=== PATIENT | female | born 1980 | race Caucasian/White ===

== ENCOUNTER 2017-03-02 20:14 | Emergency (ER) | payer OTHER ==
[~2017-03-02] VITALS: Ht 165.1 cm; Wt 95.0 kg
[2017-03-02 20:18] VITALS: BP 135/65; PULSE 80; RESP 16; TEMP 98.2; O2SAT 98
--- NOTE | 2017-03-02 21:27 | PD ---
HPI . migraine x 1 day Chief Complaint: Headache Time Seen by Provider: 21:26 Travel History International Travel<30 days: No Contact w/Intl Traveler<30days: No Traveled to known affect area: No History of Present Illness HPI 37-year-old female with history of migraines since age 14 here with complaints of migraine that started today. Patient tells me the migraines located behind her right eye moving towards the right side of her head and wraps around her right ear. She rates the pain as 8/10 without any further radiation and described earlier. She is sensitive to light, and denies any other visual changes. She tells me that she usually has headaches similar to this however it doesn't usually affect around her eyes as much. She denies any head injury or loss of consciousness. She has no other complaints. PFSH Past Medical History Diminished Hearing: No Migraines: Yes Tetanus Vaccination: Unknown Influenza Vaccination: No ?: Not LMP: NONE : 6 Para: 6 Tubal Ligation: Yes Past Surgical History Abdominal Surgery: Yes (HERNIA REPAIR) Hysterectomy: Yes Social History Alcohol Use: Yes (OCC) Tobacco Use: Yes (1PPD) Substance Use: No Allergies-Medications (Allergen,Severity, Reaction): Coded Allergies: Morphine (Verified Allergy, Mild, Itching, 03/02/17) Reported Meds & Prescriptions Reported Meds & Active Scripts Active Fioricet (Kjnokqratb-Pngrsnikznadc-Gvpzjmqf) 50-300-40 Mg Cap 1 Cap PO Q4H PRN Review of Systems General / Constitutional: No: Fever Eyes: Positive: Photophobia, No: Visual changes HENT: No: Headaches, Neck Stiffness Cardiovascular: No: Chest Pain or Discomfort Respiratory: No: Shortness of Breath Gastrointestinal: No: Abdominal Pain Genitourinary: No: Dysuria Musculoskeletal: No: Pain Skin: No Rash Neurologic: Positive: Headache, No: Weakness Psychiatric: No: Depression Endocrine: No: Polydipsia Hematologic/Lymphatic: No: Easy Bruising Physical Exam Narrative GENERAL: AAO x 3, no acute distress, Well-nourished, well-developed patient. Appears comfortable without any distress SKIN: Warm and dry. No visible rashes or bruising. HEAD: Normocephalic and atraumatic. EYES: No scleral icterus. No injection or drainage. EOM intact, PERRLA ENT: No nasal drainage noted. Mucous membranes pink. Airway patent. NECK: Supple, trachea midline. No JVD. Supple no lymphadenopathy CARDIOVASCULAR: Regular rate and rhythm without murmurs, gallops, or rubs. RESPIRATORY: Breath sounds equal bilaterally. No accessory muscle use. No rhonchi or rales. GASTROINTESTINAL: Abdomen soft, non-tender, nondistended. EXTREMITIES: No cyanosis or edema. BACK: Nontender without obvious deformity. No CVA tenderness. NEURO: CN II-12 intact, marketing analytics lead strength normal b/l, UE and LE 5/5, no focal deficits PSYCH: AAO x 3, normal affect. Data Data Last Documented VS Vital Signs Date Time Temp Pulse Resp B/P Pulse Ox O2 Delivery O2 Flow Rate FiO2 03/02/17 21:36 Room Air 03/02/17 20:47 16 03/02/17 20:18 98.2 80 135/65 98 Orders Ecg Monitoring (03/02/17 21:32) Iv Access Insert/Monitor (03/02/17 21:32) Oximetry (03/02/17 21:32) Sodium Chloride 0.9% Flush (Ns Flush) (03/02/17 21:45) Ketorolac Inj (Toradol Inj) (03/02/17 21:45) Prochlorperazine Inj (Compazine Inj) (03/02/17 21:45) Diphenhydramine Inj (Benadryl Inj) (03/02/17 21:45) MDM Medical Decision Making Medical Screen Exam Complete: Yes Emergency Medical Condition: Yes Medical Record Reviewed: Yes Differential Diagnosis Migraine, acute on chronic headache, cluster headache, tension headache, less likely head trauma, less likely SAH, less likely brain tumor Narrative Course 37-year-old female here with complaints of migraine. This headache seems similar to her other headaches. Her neuro examination is unremarkable. I have provided her with Compazine, Benadryl and Toradol here in the emergency department. I explained her that ultimately she will need to establish with a primary care provider for further workup and medication management for her migraines. 224: pain is improved: patient resting comfortably and rates it as 5/10. I will discharge her home with fioricet. I have explained that she needs to see her PCP and get neurology consult to get placed on meds for migraine prophylaxis. Patient verbalized understanding of instructions, questions were answered, and thanked me for their care. I advised them if their condition worsens, please return to the nearest emergency room for further care. Diagnosis Primary Impression: Headache Qualified Code: R51 - Acute nonintractable headache, unspecified headache type Referrals: Neurologist Patient Instructions: General Instructions Additional Instructions: Please return to emergency department if your symptoms return or worsen. Follow up with your primary care provider. Take medications as prescribed. If you develop a sudden onset of headache that happens to be the worse headache of your life, go to the nearest emergency department. Med/Other Pt SpecificInfo: Prescription(s) given Scripts Qlfzpqfbqe-Mhwtgxmrwplfl-Xabajlec (Fioricet)50-300-40 Mg Cap1 Cap PO Q4H PRN ( HEADACHE) #12 CAP Ref 0 Prov:Doreen Recinos MD 03/02/17 Disposition: 01 DISCHARGE HOME Condition: Stable Silva Richter Mar 02, 2017 21:27
[2017-03-02] MEDS ORDERED: PROCHLORPERAZINE INJ 10 MG/2 ML VIAL IV PUSH ONE (21:45)
[2017-03-02] MEDS ORDERED: KETOROLAC TROMETHAMINE 30 MG/ML (IVP) VIAL IVP ONE (21:45)
[2017-03-02] MEDS ORDERED: SODIUM CHLORIDE 0.9% FLUSH 10 ML FLUSH IVF PRN (21:45)
[2017-03-02] MEDS ORDERED: diphenhydrAMINE HCL 50 MG/ML VIAL IV PUSH ONE (21:45)
[2017-03-02] MEDS ORDERED: BUTA1CAP PO (22:49)
== END 2017-03-02 23:27 | disposition home or self-care (01) ==
LOC: NEPD 20:14
DX: R51 Headache (principal); H53.143 Visual discomfort, bilateral; F17.210 Nicotine dependence, cigarettes, uncomplicated
CPT/HCPCS: 96374; 96375; 99284; J0780; J1200; J1885

== ENCOUNTER 2017-05-01 23:54 | Emergency (ER) | payer OTHER ==
[~2017-05-01] VITALS: Ht 165.1 cm; Wt 105.0 kg
[~2017-05-01 23:54] MED LIST: BUTA1CAP PO
[2017-05-01 23:55] VITALS: BP 129/64; PULSE 92; RESP 16; TEMP 98.4; O2SAT 96
--- NOTE | 2017-05-02 00:24 | PD ---
HPI Chief Complaint: Injury Time Seen by Provider: 00:15 Travel History International Travel<30 days: No Contact w/Intl Traveler<30days: No Traveled to known affect area: No History of Present Illness HPI 37-year-old female presents for evaluation of left foot pain. She reports a prior to arrival she "stepped wrong" on some stairs. She did not fall down the stairs but she is been having left foot pain since then. The pain is an aching pain in left midfoot that is constant, worse with walking. She reports that she had a recent fracture in his foot that was treated nonoperatively. She denies any other injuries and she has no other complaints. [facility] Past Medical History Diminished Hearing: No Migraines: Yes Tetanus Vaccination: Unknown Influenza Vaccination: No ?: Not LMP: IRREG : 6 Para: 6 Tubal Ligation: Yes Past Surgical History Abdominal Surgery: Yes (HERNIA REPAIR) Hysterectomy: Yes Social History Alcohol Use: No Tobacco Use: Yes (1PPD) Substance Use: No Allergies-Medications (Allergen,Severity, Reaction): Coded Allergies: morphine (Unverified Allergy, Mild, Itching, 05/02/17) Reported Meds & Prescriptions Reported Meds & Active Scripts Active No Active Prescriptions or Reported Medications Review of Systems Except as stated in HPI: all other systems reviewed are Neg Physical Exam Narrative GENERAL: Well-developed well-nourished female in no acute distress SKIN: Warm and dry. HEAD: Atraumatic. Normocephalic. EYES: Pupils equal and round. No scleral icterus. No injection or drainage. ENT: No nasal bleeding or discharge. Mucous membranes pink and moist. NECK: Trachea midline. No JVD. CARDIOVASCULAR: Regular rate and rhythm. No murmur appreciated. RESPIRATORY: No accessory muscle use. Clear to auscultation. Breath sounds equal bilaterally. MUSCULOSKELETAL: Some tenderness to palpation of the left midfoot. 2+ dorsalis pedis and posterior tibial pulse. No obvious deformities. Full range of motion of the left foot and ankle. NEUROLOGICAL: Awake and alert. No obvious cranial nerve deficits. Motor grossly within normal limits. Normal speech. Data Data Last Documented VS Vital Signs Date Time Temp Pulse Resp B/P Pulse Ox O2 Delivery O2 Flow Rate FiO2 05/01/17 23:55 98.4 92 16 129/64 96 Orders Foot, Complete ([id number]) (05/02/17 ) Ice/Cold Pack (05/02/17 00:22) [facility] Medical Decision Making Medical Screen Exam Complete: Yes Emergency Medical Condition: Yes Medical Record Reviewed: Yes Differential Diagnosis Foot fracture, strain, sprain, Lisfranc injury Narrative Course X-ray imaging of the left foot will be obtained. X-ray imaging is negative. The patient declines crutches. Stable for discharge. Diagnosis Primary Impression: Strain of left foot Qualified Code: S96.912A - Strain of left foot, initial encounter Additional Instructions: Crutches as needed. Tylenol or Motrin for discomfort per dosing instructions on the bottle. Ice pack several times a day 10 minutes at a time. Return for any emergent medical conditions. Med/Other Pt SpecificInfo: No Change to Meds Scripts No Active Prescriptions or Reported Meds Disposition: 01 DISCHARGE HOME Condition: Stable Martin Burnett May 02, 2017 00:24
--- NOTE | 2017-05-02 00:55 | RADRPT ---
EXAM DATE/TIME: 05/02/2017 00:41 [place] COMPARISON: No previous studies available for comparison. INDICATIONS : Left foot pain from a twisting injury. MEDICAL HISTORY : Left foot fracture August 2016 SURGICAL HISTORY : None. ENCOUNTER: Initial ACUITY: 1 day PAIN SCORE: 8/10 LOCATION: Left foot FINDINGS: Three view examination of the left foot demonstrates no soft tissue swelling, dislocation, or fractur e. The tarsal bones appear intact. The interphalangeal and metatarsophalangeal joints are intact. The calcaneus is intact. Bony mineralization is normal. CONCLUSION: 1. No acute findings. Mild osteoarthritis left foot. Adarsh Bay MD on May 02, 2017 at 0:52 Board Certified Radiologist. This report was verified electronically.
== END 2017-05-02 01:19 | disposition home or self-care (01) ==
LOC: NEPD 23:54
DX: S96.912A Strain of unspecified muscle and tendon at ankle and foot level, left foot, initial encounter (principal); X50.1XXA Overexertion from prolonged static or awkward postures, initial encounter; Y93.01 Activity, walking, marching and hiking
CPT/HCPCS: 73630; 99283